=== PATIENT | male | born 1980 | race Caucasian/White ===

== ENCOUNTER 2019-06-12 21:53 | Inpatient (IN) | payer MEDICARE ==
[~2019-06-12] VITALS: Ht 180.3 cm; Wt 77.6 kg
[~2019-06-12 21:53] MED LIST: CLINDAMYCIN HC300 MG PO; NAPROSYN500 MG PO; TYLENOL325 M1 PO
[2019-06-12 21:54] VITALS: BP 140/83
--- NOTE | 2019-06-12 22:19 | NUR ---
SPOKE WITH PHARMACY REGARDING NEED FOR IV CLINDAMYCIN. WILL SEND.
--- NOTE | 2019-06-12 22:57 | NUR ---
SPOKE WITH SHAGUFTA GUEVARA TO ADVISE OF ETA TO FLOOR.
[2019-06-12 23:05] VITALS: BP 132/78
--- NOTE | 2019-06-12 23:05 | NUR ---
A 39, admitted to 4E, under the services of HE Freitas DO with a diagnosis of CELLULITIS AND ABSCESS OF FACE/SEPSIS. Chief complaint is ABSCESS. Patient arrived via bed from ER. Initial assessment completed. Vital signs taken and recorded. HE FREITAS DO notified of admission to the unit. Orders received. See assessment for past medical history, medications and allergies. Patient and/or family oriented to unit. [address] visitation policy reviewed. Clothing/patient valuable form completed. SKIN WDI. SMALL OPEN AREA TO RIGHT SIDE OF FACE WHERE PIMPLE WAS LOCATED. LISA TAVERAS
--- NOTE | 2019-06-12 23:48 | NUR ---
PRN NORCO ADMINISTERED FOR PT C/O 05/29 RT FACIAL PAIN. THERE IS OBVIOUS SWELLING AND REDNESS SURROUNDING THE AREA. WILL CONTINUE TO MONITOR THE PT AND REASSESS. NO OTHER COMPLAINTS AT THIS TIME. CALL LIGHT IN REACH.
[2019-06-13] MEDS ORDERED: GABAPENTIN400 MG PO (00:10)
[2019-06-13] MEDS ORDERED: NEXIUM20 M1 PO (00:11)
[2019-06-13] MEDS ORDERED: CLARITIN-D 121 EACH PO (00:11)
--- NOTE | 2019-06-13 00:14 | NUR ---
PT REFUSED TEDS AT THIS TIME.
--- NOTE | 2019-06-13 00:15 | NUR ---
DR WONG NOTIFIED THAT THE MED REC HAS BEEN REVIEWED WITH THE PT.
--- NOTE | 2019-06-13 00:25 | NUR ---
PT ASLEEP. NO SIGNS OF DISCOMFORT OR DISTRESS NOTED. WILL CONTINUE TO MONITOR.
--- NOTE | 2019-06-13 04:18 | NUR ---
PRN NORCO ADMINISTERED FOR PT C/O RT SIDED FACIAL PAIN RATED A 10 ON THE PAIN SCALE. WILL CONTINUE TO MONITOR AND REASSESS. NO OTHER COMPLAINTS AT THIS TIME. CALL LIGHT IN REACH.
--- NOTE | 2019-06-13 05:32 | NUR ---
PT ASLEEP. NO SIGNS OF DISCOMFORT OR DISTRESS NOTED.
[2019-06-13 06:16] LABS: BASO % 0.4 % (0.0-1.0); EOS # 0.3 10*3/uL (0.0-0.4); EOS % 3.7 % (1.0-4.0); HEMATOCRIT 37.5 % (42.0-52.0); HEMOGLOBIN 12.1 g/dl (14.0-18.0); LYMPH # 1.4 10*3/uL (1.3-4.4); LYMPH % 16.9 % (27.0-41.0); MEAN CELL VOLUME 93.1 fl (80.0-94.0); MEAN CORPUSCULAR HGB CONC 32.3 g/dl (33.0-37.0); MEAN PLATELET VOLUME 12.2 fl (9.6-12.3); MONO # 0.7 10*3/uL (0.1-1.0); MONO % 8.2 % (3.0-9.0); NEUT # 5.8 10*3/uL (2.3-7.9); NEUT % 70.4 % (47.0-73.0); PLATELET COUNT AUTOMATED 139 10*3/uL (130-400); RED BLOOD COUNT 4.03 10*6/uL (4.50-5.90); RED CELL DISTRI WIDTH 13.3 % (0-14.5); WHITE BLOOD COUNT 8.2 10*3/uL (4.8-10.8)
[2019-06-13 06:51] LABS: BUN 9 mg/dl (7-24); CHLORIDE 109 mmol/L (98-107); CHOLESTEROL 93 mg/dL (<200); CREATININE 0.85 mg/dL (0.70-1.30); PHOSPHOROUS 2.8 mg/dL (2.5-4.9); POTASSIUM 4.2 mmol/L (3.5-5.1); SODIUM 139 mmol/L (136-145); TRIGLYCERIDES 90 mg/dl (<150); VLDL CHOLESTEROL 18 mg/dL (6-40)
[2019-06-13 07:00] LABS: FREE T4 1.15 ng/dl (0.76-1.46); HDL CHOLESTEROL 37 mg/dl (40-60); LDL CHOLESTEROL 38 mg/dL (9-159); THYROID STIM HORMONE (HS) 0.424 uIU/ml (0.358-4.75)
[2019-06-13 07:52] LABS: VITAMIN D, 25-HYDROXY 19.5 ng/mL (30-100)
[2019-06-13 08:00] VITALS: BP 122/80; BP 94/64
--- NOTE | 2019-06-13 08:10 | NUR ---
PATIENT MEDICATED WITH NORCO AT THIS TIME FOR RIGHT FACE PAIN D/T ABSCESS. WILL MONITOR FOR EFFECTIVENESS.
--- NOTE | 2019-06-13 09:30 | NUR ---
PATIENT MUCH MORE RELAXED AT THIS TIME AND DENIES COMPLAINTS. CALL LIGHT IN REACH.
[2019-06-13 12:00] VITALS: BP 115/73
--- NOTE | 2019-06-13 12:38 | NUR ---
PATIENT C/O FAICIAL PAIN 07/29 GAVE NORCO ORDERED PRN.
[2019-06-13 13:00] VITALS: BP 153/78
--- NOTE | 2019-06-13 13:40 | NUR ---
PER PATIENT, MEDICATION HAS BEEN EFFECTIVE. NO FURTHER COMPLAINTS AT THIS TIME.
[2019-06-13 16:00] VITALS: BP 123/77
--- NOTE | 2019-06-13 19:30 | NUR ---
PT UPSET THAT HE CAN'T GO OUTSIDE TO SMOKE. STATES HE "WOULD LIKE HIS DISCHARGE PAPERS".
--- NOTE | 2019-06-13 19:45 | NUR ---
PT LEAVING AMA. PAPERS SIGNED. EDUCATION PROVIDED TO PT REGARDING WHY HE SHOULD STAY AND CONTINUE TO RECEIVE CARE. DR MALONEY NOTIFIED. SHIFT DIRECTOR AWARE. HEP LOCK REMOVED. ALL OF PTS BELONGINGS WITH PT. DISCHARGE PAPER WORK COMPLETE.
== END 2019-06-13 19:45 | disposition left against medical advice (07) | DRG 872 ==
LOC: ED 21:53 → EDHOLD 22:39 → 4E 22:55
PROVIDERS: Internal Medicine; ADMIT Internal Medicine
DX: A41.9 Sepsis, unspecified organism (principal); L03.211 Cellulitis of face; L02.01 Cutaneous abscess of face; R03.0 Elevated blood-pressure reading, without diagnosis of hypertension; F17.210 Nicotine dependence, cigarettes, uncomplicated; G89.29 Other chronic pain; M54.5 Low back pain; J30.2 Other seasonal allergic rhinitis; K21.9 Gastro-esophageal reflux disease without esophagitis; E87.8 Other disorders of electrolyte and fluid balance, not elsewhere classified; E83.41 Hypermagnesemia; E74.39 Other disorders of intestinal carbohydrate absorption; Z53.21 Procedure and treatment not carried out due to patient leaving prior to being seen by health care provider; Z88.1 Allergy status to other antibiotic agents; Z90.5 Acquired absence of kidney; Z71.6 Tobacco abuse counseling; Z85.528 Personal history of other malignant neoplasm of kidney; Z84.89 Family history of other specified conditions

== ENCOUNTER 2019-07-28 13:47 | Emergency (ER) | payer MEDICARE ==
[~2019-07-28] VITALS: Ht 154.9 cm; Wt 74.8 kg
[~2019-07-28 13:47] MED LIST changes: +CLARITIN-D 121 EACH PO; +GABAPENTIN400 MG PO; +NEXIUM20 M1 PO
[2019-07-28] MEDS ORDERED: VIBRAMYCIN100 MG PO (14:24)
== END 2019-07-28 14:44 | disposition home or self-care (01) ==
LOC: ED 13:47
DX: J01.00 Acute maxillary sinusitis, unspecified (principal); F17.210 Nicotine dependence, cigarettes, uncomplicated; Z88.1 Allergy status to other antibiotic agents

== ENCOUNTER 2021-03-12 20:48 | Emergency (ER) | payer MEDICARE ==
[~2021-03-12] VITALS: Ht 180.3 cm; Wt 89.4 kg
[~2021-03-12 20:48] MED LIST changes: +VIBRAMYCIN100 MG PO
[2021-03-12 22:08] LABS: INTERNATIONAL NORM RATIO 0.9 (2.0-3.5)
[2021-03-12 22:14] LABS: ALBUMIN 3.5 gm/dl (3.1-4.5); ALKALINE PHOSPHATASE 145 U/L (45-117); BUN 15 mg/dl (7-24); CHLORIDE 108 mmol/L (98-107); CREATININE 1.37 mg/dL (0.70-1.30); POTASSIUM 3.9 mmol/L (3.5-5.1); SGOT/AST 13 IU/L (3-35); SGPT/ALT 35 U/L (12-78); SODIUM 137 mmol/L (136-145); TOTAL PROTEIN 7.3 gm/dL (6.4-8.2)
[2021-03-12 22:15] LABS: TROPONIN I < 0.015 ng/ml (<0.045)
[2021-03-12 23:04] LABS: BASO % 0.5 % (0.0-1.0); EOS # 0.1 10*3/uL (0.0-0.4); HEMATOCRIT 45.4 % (42.0-52.0); LYMPH # 2.3 10*3/uL (1.3-4.4); LYMPH % 26.2 % (27.0-41.0); MEAN CELL VOLUME 89.2 fl (80.0-94.0); MEAN CORPUSCULAR HGB 29.5 pg (27.0-31.0); MEAN PLATELET VOLUME 12.7 fl (9.6-12.3); MONO # 0.6 10*3/uL (0.1-1.0); MONO % 6.3 % (3.0-9.0); NEUT # 5.7 10*3/uL (2.3-7.9); NEUT % 65.2 % (47.0-73.0); PLATELET COUNT AUTOMATED 186 10*3/uL (130-400); RED BLOOD COUNT 5.09 10*6/uL (4.50-5.90); RED CELL DISTRI WIDTH 14.1 % (0-14.5); WHITE BLOOD COUNT 8.7 10*3/uL (4.8-10.8)
== END 2021-03-13 00:54 | disposition home or self-care (01) ==
LOC: ED 20:48
PROVIDERS: Emergency Medicine
DX: R07.9 Chest pain, unspecified (principal); K21.9 Gastro-esophageal reflux disease without esophagitis; Z88.8 Allergy status to other drugs, medicaments and biological substances; Z79.899 Other long term (current) drug therapy; Z98.890 Other specified postprocedural states; Z87.891 Personal history of nicotine dependence

== ENCOUNTER → 2021-03-20 | Outpatient (CLI) | payer MEDICARE | END | disposition home or self-care (01) | LOC: CARD 11:44 | PROVIDERS: ATTEND Physician Assistant | DX: R00.0 Tachycardia, unspecified (principal); J44.9 Chronic obstructive pulmonary disease, unspecified; R00.2 Palpitations ==

== ENCOUNTER → 2021-06-05 | Outpatient (CLI) | payer MEDICARE | END | disposition home or self-care (01) | LOC: CARD 05-29 13:00 → US 13:00 | PROVIDERS: ATTEND Internal Medicine Cardiovascular Disease | DX: I73.9 Peripheral vascular disease, unspecified (principal); R94.31 Abnormal electrocardiogram [ECG] [EKG] ==

== ENCOUNTER → 2021-07-12 | Day surgery (SDC) | payer MEDICARE ==
[~2021-07-12] VITALS: Ht 180.3 cm; Wt 94.3 kg
[~2021-07-12] MED LIST changes: +ADVAIR 250/501 EA INH; +CARAFATE1 G1 PO; +CLARITIN10 MG PO; +CYCLOBENZAPRINE10 MG PO; +LOPRESSOR50 M1 PO; +NEXIUM40 MG PO; +PEPCID40 MG PO
[2021-07-12 07:20] VITALS: BP 122/81
[2021-07-12 08:20] VITALS: BP 123/83
[2021-07-12 08:35] VITALS: BP 127/90
[2021-07-12 08:49] VITALS: BP 128/94
== END | disposition home or self-care (01) ==
LOC: SDC 07-09 08:45
PROVIDERS: ATTEND Surgery
DX: Z12.11 Encounter for screening for malignant neoplasm of colon (principal); D12.8 Benign neoplasm of rectum; K29.50 Unspecified chronic gastritis without bleeding; J45.909 Unspecified asthma, uncomplicated; K21.9 Gastro-esophageal reflux disease without esophagitis; F17.210 Nicotine dependence, cigarettes, uncomplicated; I10 Essential (primary) hypertension; Z85.528 Personal history of other malignant neoplasm of kidney; Z79.899 Other long term (current) drug therapy; Z98.890 Other specified postprocedural states; Z20.822 Contact with and (suspected) exposure to COVID-19

== ENCOUNTER 2021-10-20 12:42 | Emergency (ER) | payer MEDICARE ==
[~2021-10-20] VITALS: Wt 100.2 kg
[2021-10-20] MEDS ORDERED: IBUPROFEN600 MG PO (16:37)
[2021-10-20] MEDS ORDERED: VIBRAMYCIN100 MG PO (16:37)
== END 2021-10-20 16:39 | disposition home or self-care (01) ==
LOC: ED 12:42
DX: N49.2 Inflammatory disorders of scrotum (principal); F17.210 Nicotine dependence, cigarettes, uncomplicated; Z88.1 Allergy status to other antibiotic agents; Z79.899 Other long term (current) drug therapy

== ENCOUNTER 2021-11-30 12:37 | Emergency (ER) | payer MEDICARE ==
[~2021-11-30] VITALS: Ht 177.8 cm; Wt 100.2 kg
[~2021-11-30 12:37] MED LIST changes: +IBUPROFEN600 MG PO
[2021-11-30 13:29] LABS: BASO % 0.5 % (0.0-1.0); EOS % 0.1 % (1.0-4.0); LYMPH % 23.4 % (27.0-41.0); MEAN CELL VOLUME 89.9 fl (80.0-94.0); MEAN CORPUSCULAR HGB 30.8 pg (27.0-31.0); MEAN CORPUSCULAR HGB CONC 34.3 g/dl (33.0-37.0); MONO # 0.9 10*3/uL (0.1-1.0); MONO % 10.6 % (3.0-9.0); NEUT # 5.5 10*3/uL (2.3-7.9); PLATELET COUNT AUTOMATED 245 10*3/uL (130-400); RED BLOOD COUNT 4.67 10*6/uL (4.50-5.90); RED CELL DISTRI WIDTH 13.2 % (0-14.5); WHITE BLOOD COUNT 8.4 10*3/uL (4.8-10.8)
[2021-11-30 13:45] LABS: ALBUMIN 4.6 gm/dl (3.1-4.5); ALKALINE PHOSPHATASE 129 U/L (45-117); BUN 29 mg/dl (7-24); CHLORIDE 108 mmol/L (98-107); CREATININE 1.45 mg/dL (0.70-1.30); POTASSIUM 3.7 mmol/L (3.5-5.1); SGOT/AST 45 IU/L (3-35); SGPT/ALT 61 U/L (12-78); SODIUM 139 mmol/L (136-145); TOTAL PROTEIN 8.2 gm/dL (6.4-8.2)
[2021-11-30 14:44] LABS: BILIRUBIN Negative (Negative); BLOOD Negative (Negative); CLARITY Clear (Clear); COLOR Yellow (Yellow); GLUCOSE Negative (Negative); KETONE Trace (Negative); LEUKO ESTERASE Negative (Negative); NITRITE Negative (Negative); SPECIFIC GRAVITY >= 1.030 (1.001-1.030)
[2021-11-30 15:17] LABS: URINE AMPHETAMINES > 1000 (1000ng/ml); URINE BARBITURATES < 200 (200ng/ml); URINE BENZODIAZEPINES < 200 (200ng/ml); URINE CANNABINOIDS (THC) < 50 (50ng/ml); URINE COCAINE < 300 (300ng/ml); URINE METHADONE < 300 (300ng/ml); URINE OPIATES < 300 (300ng/ml)
[2021-11-30 15:37] LABS: BACTERIA TRACE; EPITHELIAL CELLS 0-2; MUCOUS TRACE; RBC 0-2 rbc/hpf (0-2); WBC 0-2 wbc/hpf (0-5)
[2021-11-30 15:42] LABS: ACETAMINOPHEN (TYLENOL) < 5.0 ug/ml (10-30)
[2021-11-30 15:43] LABS: ETHYL ALCOHOL < 3.0 mg/dl (<3)
[2021-11-30 16:05] LABS: URINE PHENCYCLIDINE < 25 (25ng/ml)
== END 2021-12-01 01:26 ==
LOC: ED 12:37
PROVIDERS: Nurse Practitioner Family
DX: F43.21 Adjustment disorder with depressed mood (principal); Z20.822 Contact with and (suspected) exposure to COVID-19; Z88.1 Allergy status to other antibiotic agents; Z79.899 Other long term (current) drug therapy; Z98.890 Other specified postprocedural states

== ENCOUNTER → 2022-05-01 | Outpatient (CLI) | payer MEDICARE | END | disposition home or self-care (01) | LOC: RAD 11:44 | PROVIDERS: ATTEND Physician Assistant | DX: M43.8X6 Other specified deforming dorsopathies, lumbar region (principal) ==

== ENCOUNTER → 2022-07-24 | Outpatient (CLI) | payer MEDICARE | END | disposition home or self-care (01) | LOC: MRI 07-01 08:00 | PROVIDERS: ATTEND Physician Assistant | DX: M51.37 Other intervertebral disc degeneration, lumbosacral region (principal); M54.50 Low back pain, unspecified ==